=== PATIENT | male | born 1945 | race Caucasian/White ===

== ENCOUNTER 2017-02-28 10:47 | Day surgery (SDC) | payer MEDICARE, OTHER ==
--- NOTE | 2017-02-25 13:23 | HP ---
DATE OF SURGERY: 02/28/2017 HISTORY OF PRESENT ILLNESS: History of enlarging symptomatic back cyst x2, desires definitive excision. PAST MEDICAL HISTORY: Heart disease, lung disease, diabetes. PAST SURGICAL HISTORY: Back surgery, neck surgery, colonoscopy, upper and lower endoscopy in the past. MEDICATIONS: Antibiotics for recent Helicobacter pylori treatment, Prevacid, Flomax, TriCor, Lipitor, OxyContin, hydrocodone, paroxetine, Enalapril, gabapentin, temazepam, Metformin, Presser vision, fish oil. ALLERGIES: SULFA, ERYTHROMYCIN. FAMILY HISTORY: Heart disease, cancer. SOCIAL HISTORY: No smoking or alcohol abuse. REVIEW OF SYSTEMS: Twelve systems reviewed per admission assessment. No chest pain or palpitations other systems negative or noncontributory as above and per preadmission questionnaire. PHYSICAL EXAMINATION: GENERAL: No acute distress. HEENT: Sclerae nonicteric. NECK: No JVD. CHEST: Equal excursion, nonlabored breathing. CVS: Regular rate and rhythm. ABDOMEN: Soft. No peritoneal signs. EXTREMITIES: No significant edema. NEURO: Alert, oriented moving extremities symmetrically. No gross motor deficits noted. BACK: He has a couple of cysts on his back recently symptomatic, desires excision. IMPRESSION: Persistent symptomatic enlarging back cysts x2. I feel he will benefit from excisional biopsy. Risks and benefits explained in detail including but not limited to bleeding or infection, risk of wound complications or dehiscence possibly requiring packing. He understands if there is infection at the time of surgery may need to leave a packing wick in place, or packed to begin with or if dehisced might require packing at a later date, general risk of aches, pains, burning or numbness. He understands that what we excise as benign cyst pending final path they would not recur but he could get similar cysts or nodule adjacent to or elsewhere on his back or body as well as general risk of anesthesia or sedation. He understands and agrees to the planned procedure and will proceed with excisional biopsy of back cyst x2 as an outpatient.
[~2017-02-28 10:47] MED LIST: Lactated Ringers 1,000 ML IV ONE; Lactated Ringers 1,000 ML IV SCH; Sensorcaine 0.25% 10 ML ONE
[2017-02-28] MEDS ORDERED: Versed 2 MG/2 ML Injection IV ONE (10:48)
[2017-02-28] MEDS ORDERED: Ketamine HCl 50 MG/ML IV ONE (10:48)
[2017-02-28] MEDS ORDERED: DIPRIVAN 200 MG/20 ML IV ONE (10:48)
[2017-02-28] MEDS ORDERED: Sensorcaine 0.25% 10 ML ONE (13:21)
--- NOTE | 2017-02-28 15:07 | OP ---
SURGERY DATE/TIME: 02/28/2017 1250 PREOPERATIVE DIAGNOSIS: History of ruptured cyst site x3, back. POSTOPERATIVE DIAGNOSIS: History of ruptured cyst site x3, back. PROCEDURES: 1) Excisional biopsy ruptured back cyst site lower back (approximately 2 cm) with intermediate closure. 2) Excisional biopsy of upper back ruptured cyst site approximately 1.5 cm showing reaction (with intermediate closure). 3) Excisional biopsy of the right back ruptured cyst site approximately 1 cm (with intermediate closure). SURGEON: Dr. Shai Rowe. COVERAGE SPECIALIST RN: Florence Alamo, Medical Student III. ANESTHESIA: General. ESTIMATED BLOOD LOSS: Minimal. INDICATIONS: As noted above. Risks and benefits explained in detail and not limited to and consent obtained. DESCRIPTION OF PROCEDURE AND FINDINGS: The patient is taken to the operating room. MAC anesthesia was introduced. Back is prepped and draped in usual sterile fashion in lateral position. Appropriate padding positioned per anesthesia and OR staff. The three areas in question had been confirmed with the patient in the preoperative holding area. Prepped and draped in usual fashion. After official time out 1% lidocaine local was infiltrated in field pattern around these areas. In spindle-shaped fashion around the pit in the skin, dissection carried down circumferentially around some reaction. Small ruptured cyst site about 1.5 cm in size. Dissection carried down to normal appearing subcutaneous tissue beneath. The specimen is passed off. Good hemostasis noted. Subcu closed with 3-0 Vicryl, superficial subcu closed with 3-0, skin closed with 4-0 Vicryl. This was again repeated in the right back where a 1 cm ruptured cyst site was noted this was closed the deep superficial subcu closed with 3-0 Vicryl, skin closed with 4-0 Vicryl. Again on the lower back a 2 cm cyst site was noted. Dissection carried down circumferentially around this ruptured cyst site down to normal appearing subcutaneous tissue. The deep superficial subcu closed with 3-0 Vicryl, skin closed with 4-0 Vicryl. Given location on the back, all three of these were reinforced with some interrupted 3-0 Prolene given location. Steri-Strips and sterile dressing applied. The patient tolerated the procedure well. There were no immediate complications. Findings discussed with the family out in the waiting area. He was transferred to the recovery room in stable condition.
[2017-02-28 15:38] VITALS: O2SAT 93
[2017-02-28 15:48] VITALS: BP 150/73; PULSE 69
== END 2017-02-28 14:55 | disposition home or self-care (01) ==
LOC: SDC 10:47
PROVIDERS: ATTEND Surgery
PROC: 0JQ70ZZ Repair Back Subcutaneous Tissue and Fascia, Open Approach (ICD-10-PCS; principal; 2017-02-28)
PROC: 0HB6XZZ Excision of Back Skin, External Approach (ICD-10-PCS; 2017-02-28)
PROC: 0HQ6XZZ Repair Back Skin, External Approach (ICD-10-PCS; 2017-02-28)
DX: L72.0 Epidermal cyst (principal); L72.3 Sebaceous cyst; R20.8 Other disturbances of skin sensation; I51.9 Heart disease, unspecified; J98.4 Other disorders of lung; E11.9 Type 2 diabetes mellitus without complications; Z79.4 Long term (current) use of insulin; Z79.899 Other long term (current) drug therapy
CPT/HCPCS: 00300; 00400; 36415; 82962; 88304; 88305; J2250; J2704